=== PATIENT | male | born 1990 | race Two or more races ===

== ENCOUNTER 2017-08-14 13:21 | Inpatient (IN) | payer SELFPAY ==
[~2017-08-14] VITALS: Ht 175.3 cm; Wt 86.2 kg
[2017-08-14] VITALS (8 sets, daily range): BP systolic 102–120; BP diastolic 62–71
--- NOTE | 2017-08-14 14:08 | PHYS DOC ---
Past Medical History Past Medical History: No Pertinent History Past Surgical History: Other Additional Past Surgical Histo: L clavicle Alcohol Use: None Drug Use: None Adult General Chief Complaint Chief Complaint: LACERATION/AVULSION HPI HPI Patient is a 27 year old Occitan speaking male presents to the emergency department stating that he was at work when a metal sheet fell on his right forearm. This information as been provided through his boss who is interpreting for patient. He states that this fellow provided a laceration to the forearm area. He states his last tetanus shot was approximately 6 months ago. Patient does have full range of motion of the fingers on the right hand. Patient is left -hand-dominant. Bleeding is currently controlled. Review of Systems Review of Systems Constitutional: Denies fever or chills [] Eyes: Denies change in visual acuity, redness, or eye pain [] HENT: Denies nasal congestion or sore throat [] Respiratory: Denies cough or shortness of breath [] Cardiovascular: No additional information not addressed in HPI [] GI: Denies abdominal pain, nausea, vomiting, bloody stools or diarrhea [] : Denies dysuria or hematuria [] Musculoskeletal: Denies back pain or joint pain [] Integument: Denies rash or skin lesions. C/o laceration right forearm Neurologic: Denies headache, focal weakness or sensory changes [] Endocrine: Denies polyuria or polydipsia [] Current Medications Current Medications Current Medications Medications (Trade) Dose Ordered Sig/[facility] Start Time Stop Time Status Last Admin Dose Admin Cefazolin Sodium (Ancef 1gm Ivpb For Omni) 1 gm 1X ONCE 08/14/17 15:30 08/14/17 15:31 DC 08/14/17 15:07 1 GM Dexamethasone Sodium Phosphate (Decadron) 20 mg STK-MED ONCE 08/14/17 15:25 08/14/17 15:26 DC Fentanyl Citrate (Fentanyl 2ml Vial) 50 mcg PRN Q5MIN PRN 08/14/17 16:00 08/14/17 23:00 Hydromorphone HCl (Dilaudid) 0.5 mg PRN Q10MIN PRN 08/14/17 16:00 08/14/17 23:00 Ibuprofen (Motrin) 800 mg 1X ONCE 08/14/17 14:30 08/14/17 14:31 DC 08/14/17 14:06 800 MG Lidocaine HCl (Lidocaine Pf 2% Vial) 5 ml STK-MED ONCE 08/14/17 15:25 08/14/17 15:26 DC Lidocaine HCl (Xylocaine-Mpf 1% Vial) 2 ml PRN 1X PRN 08/14/17 16:00 08/14/17 23:00 Lidocaine/Sodium Bicarbonate (Buffered Lidocaine 1%) 20 ml 1X ONCE 08/14/17 14:30 08/14/17 14:31 DC 08/14/17 14:07 20 ML Midazolam HCl (Versed) 2 mg STK-MED ONCE 08/14/17 15:41 08/14/17 15:42 DC Morphine Sulfate 1 mg PRN Q10MIN PRN 08/14/17 16:00 08/14/17 23:00 Ondansetron HCl (Zofran) 4 mg PRN Q6HRS PRN 08/14/17 16:00 08/14/17 23:00 Prochlorperazine Edisylate (Compazine) 5 mg PACU PRN PRN 08/14/17 16:00 08/14/17 23:00 Propofol 20 ml @ As Directed STK-MED ONCE 08/14/17 15:25 08/14/17 15:26 DC Ringer's Solution 1,000 ml @ 30 mls/hr Q24H 08/14/17 15:46 08/14/17 23:00 Sevoflurane (Ultane) 30 ml STK-MED ONCE 08/14/17 15:25 08/14/17 15:26 DC Allergies Allergies Allergies Coded Allergies Type Severity Reaction Last Updated Verified No Known Drug Allergies 08/14/17 No Physical Exam Physical Exam Constitutional: Well developed, well nourished, no acute distress, non-toxic appearance. [] HENT: Normocephalic, atraumatic, bilateral external ears normal, oropharynx moist, no oral exudates, nose normal. [] Eyes: PERRLA, EOMI, conjunctiva normal, no discharge. [] Neck: Normal range of motion, no tenderness, supple, no stridor. [] Cardiovascular:Heart rate regular rhythm, no murmur [] Lungs & Thorax: Bilateral breath sounds clear to auscultation [] Skin: Warm, dry, no erythema, no rash. Laceration right forearm, bleeding controlled. Patient with full ROM of the right hand Back: No tenderness Extremities: No tenderness, no cyanosis, no clubbing, ROM intact, no edema. [] Neurologic: Alert and oriented X 3, normal motor function, normal sensory function, no focal deficits noted. [] Psychologic: Affect normal, judgement normal, mood normal. [] Current Patient Data Vital Signs Vital Signs Date Time Temp Pulse Resp B/P (MAP) Pulse Ox O2 Delivery O2 Flow Rate FiO2 08/14/17 13:33 98.5 77 20 96 Room Air 98.5 Lab Values Laboratory Tests Test 08/14/17 14:50 White Blood Count 11.5 x10^3/uL (4.0-11.0) H Red Blood Count 4.94 x10^6/uL (4.30-5.70) Hemoglobin 16.0 g/dL (13.0-17.5) Hematocrit 45.5 % (39.0-53.0) Mean Corpuscular Volume 92 fL (79-100) Mean Corpuscular Hemoglobin 32 pg (25-35) Mean Corpuscular Hemoglobin Concent 35 g/dL (31-37) Red Cell Distribution Width 13.1 % (11.5-14.5) Platelet Count 184 x10^3/uL (140-400) Neutrophils (%) (Auto) 82 % (31-73) H Lymphocytes (%) (Auto) 12 % (24-48) L Monocytes (%) (Auto) 7 % (0-9) Eosinophils (%) (Auto) 0 % (0-3) Basophils (%) (Auto) 0 % (0-3) Neutrophils # (Auto) 9.4 x10^3uL (1.8-7.7) H Lymphocytes # (Auto) 1.3 x10^3/uL (1.0-4.8) Monocytes # (Auto) 0.7 x10^3/uL (0.0-1.1) Eosinophils # (Auto) 0.0 x10^3/uL (0.0-0.7) Basophils # (Auto) 0.0 x10^3/uL (0.0-0.2) Sodium Level 142 mmol/L (136-145) Potassium Level 3.9 mmol/L (3.5-5.1) Chloride Level 104 mmol/L (98-107) Carbon Dioxide Level 27 mmol/L (21-32) Anion Gap 11 (6-14) Blood Urea Nitrogen 17 mg/dL (8-26) Creatinine 1.1 mg/dL (0.7-1.3) Estimated GFR (Cockcroft-Gault) 80.3 BUN/Creatinine Ratio 15 (6-20) Glucose Level 108 mg/dL (70-99) H Calcium Level 9.4 mg/dL (8.5-10.1) Total Bilirubin 0.5 mg/dL (0.2-1.0) Aspartate Amino Transferase (AST) 24 U/L (15-37) Alanine Aminotransferase (ALT) 30 U/L (16-63) Alkaline Phosphatase 100 U/L (46-116) Total Protein 7.9 g/dL (6.4-8.2) Albumin 4.4 g/dL (3.4-5.0) Albumin/Globulin Ratio 1.3 (1.0-1.7) Laboratory Tests 08/14/17 14:50 Laboratory Tests 08/14/17 14:50 EKG EKG [] Radiology/Procedures Radiology/Procedures [][facility] [address] [place] [address] IMAGING REPORT Signed PATIENT: BRIANNE MACEDO ACCOUNT: [id number] : 1990 LOCATION: ER AGE: 27 SEX: M EXAM STATUS: REG ER ORD. PHYSICIAN: OLI SCHAFFER APRN REASON: wrist pain, laceration, HEAVY OBJECT FELL & HIT ARM TODAY PROCEDURE: WRIST 3V RIGHT Right wrist, 2 views, 08/14/2017: History: Injury There is a transverse fracture of the distal radial shaft centered approximately 7 cm proximal to the level of the wrist joint. There is mild radial displacement of the distal fracture fragment at that fracture site. A slightly displaced ulnar styloid fracture is present. The carpal bones are intact. No dislocation is evident at the wrist. There is moderate overlying soft tissue swelling at the distal forearm level. IMPRESSION: 1. Mildly displaced distal radial shaft fracture. 2. Small ulnar styloid fracture. DICTATED and SIGNED BY: PER CALDERON MD DATE: 08/14/17 142 CC: OLI SCHAFFER APRN; NO PCP; NON,STAFF ~ Course & Med Decision Making Course & Med Decision Making Pertinent Labs and Imaging studies reviewed. (See chart for details) Patient with open laceration noted to the right forearm on the dorsal side that appears to have 2 lacerations one pink approximately 1.5 cm with a second being approximately 1 cm. Bleeding is currently controlled. Spoke with Dr. Cain orthopedic who is contacting the surgical department to see if there is any openings. Plan is for the patient to go to surgery between 1545 and 1600. Spoke with hospitalist in regards to admission of this patient. Dr Agee agrees with admission orders completed. [] Dragon Disclaimer Dragon Disclaimer This electronic medical record was generated, in whole or in part, using a voice recognition dictation system. Departure Departure Impression: Primary Impression: Open fracture of right forearm Disposition: ADMITTED INPATIENT Admitting Physician: Osman Agee Condition: STABLE Referrals: NO PCP (PCP) OLI SCHAFFER APRN Aug 14, 2017 14:08
[2017-08-14] MEDS ORDERED: LIDOCAINE 1% / SOD BICARB 8.4% 20 ML VIAL. IJ ONE (14:30)
[2017-08-14] MEDS ORDERED: IBUPROFEN 800 MG TABLET. PO ONE (14:30)
--- NOTE | 2017-08-14 14:36 | RAD ---
Right wrist, 2 views, 08/14/2017: History: Injury There is a transverse fracture of the distal radial shaft centered approximately 7 cm proximal to the level of the wrist joint. There is mild radial displacement of the distal fracture fragment at that fracture site. A slightly displaced ulnar styloid fracture is present. The carpal bones are intact. No dislocation is evident at the wrist. There is moderate overlying soft tissue swelling at the distal forearm level. IMPRESSION: 1. Mildly displaced distal radial shaft fracture. 2. Small ulnar styloid fracture.
[2017-08-14 15:12] LABS: BASO % 0 % (0-3); EOS % 0 % (0-3); HEMATOCRIT 45.5 % (39.0-53.0); LYMPH # 1.3 x10^3/uL (1.0-4.8); LYMPH % 12 % (24-48); MEAN CORPUSCULAR HEMOGLOBIN 32 pg (25-35); MEAN CORPUSCULAR HGB CONC 35 g/dL (31-37); MEAN CORPUSCULAR VOLUME 92 fL (79-100); MONO % 7 % (0-9); NEUT % 82 % (31-73); PLATELET COUNT 184 x10^3/uL (140-400); RED BLOOD COUNT 4.94 x10^6/uL (4.30-5.70); RED CELL DISTRIBUTION WIDTH 13.1 % (11.5-14.5); WHITE BLOOD COUNT 11.5 x10^3/uL (4.0-11.0)
[2017-08-14 15:20] LABS: CALCIUM 9.4 mg/dL (8.5-10.1); CREATININE 1.1 mg/dL (0.7-1.3); GFR 80.3; POTASSIUM 3.9 mmol/L (3.5-5.1)
[2017-08-14] MEDS ORDERED: LIDOCAINE 2% PF Vial for OR 5 ML VIAL. ONE ×2 (15:25→17:49)
[2017-08-14] MEDS ORDERED: ONDANSETRON PF 4 MG/2 ML VIAL. ONE (15:25)
[2017-08-14] MEDS ORDERED: PROPOFOL 20 ML IV ONE (15:25)
[2017-08-14] MEDS ORDERED: SEVOFLURANE 31 TO 60 MINUTES. IH ONE (15:25)
[2017-08-14] MEDS ORDERED: DEXAMETHASONE SOD PHOS 20 MG/5 ML VIAL. ONE (15:25)
[2017-08-14 15:26] LABS: ALBUMIN 4.4 g/dL (3.4-5.0); ALBUMIN/GLOBULIN RATIO 1.3 (1.0-1.7); TOTAL BILIRUBIN 0.5 mg/dL (0.2-1.0); TOTAL PROTEIN 7.9 g/dL (6.4-8.2)
[2017-08-14] MEDS ORDERED: ceFAZolin 1GM IVPB FOR OMNI 1 GM/50 ML BAG IV ONE (15:30)
[2017-08-14] MEDS ORDERED: fentaNYL PF VIAL 100 MCG/2 ML VIAL ONE ×2 (15:41→16:31)
[2017-08-14] MEDS ORDERED: MIDAZOLAM HCL/PF 2 MG/2 ML VIAL. ONE (15:41)
[2017-08-14] MEDS ORDERED: IV RINGERS,LACTATED 1000ML 1,000 ML IV SCH (15:46)
[2017-08-14] MEDS ORDERED: HYDROmorphone 2 MG/ML VIAL IV PRN (16:00)
[2017-08-14] MEDS ORDERED: LIDOCAINE 1% PF 2 ML VIAL. ID PRN (16:00)
[2017-08-14] MEDS ORDERED: ONDANSETRON PF 4 MG/2 ML VIAL. IV PRN ×2 (16:00→16:30)
[2017-08-14] MEDS ORDERED: PROCHLORPERAZINE 10 MG/2 ML VIAL. IV PRN (16:00)
[2017-08-14] MEDS ORDERED: fentaNYL PF VIAL 100 MCG/2 ML VIAL IV PRN ×2 (16:00)
[2017-08-14] MEDS ORDERED: MORPHINE SULFATE 2 MG/ML DISP.SYRIN. IV PRN ×2 (16:00→16:30)
[2017-08-14] MEDS ORDERED: BUPIVACAINE MPF 0.5% 30 ML VIAL. ONE (16:26)
[2017-08-14] MEDS ORDERED: oxyCODONE/APAP 5/325 1 TAB TABLET PO PRN (16:30)
[2017-08-14] MEDS ORDERED: ACETAMINOPHEN 325 MG TABLET. PO PRN (16:30)
[2017-08-14] MEDS ORDERED: DOCUSATE SODIUM 100 MG CAPSULE. PO PRN (16:30)
[2017-08-14] MEDS ORDERED: traMADol 50 MG TABLET PO PRN ×2 (16:30→18:30)
[2017-08-14] MEDS ORDERED: hydrALAZINE 20 MG/ML VIAL. IVP PRN (16:30)
--- NOTE | 2017-08-14 16:33 | PDOC1 ---
History and Physical Date of Admission Date of Admission 08/14/17 Identification/Chief Complaint Chief Complaint right arm fx Problems: Source Source: Chart review, Patient History of Present Illness History of Present Illness Patient is a 27 year old Ghanaian speaking male presents to the emergency department for right forearm pain. Pt is latvian speaking. 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 He was noticed to have a laceration to the forearm area and XR showed a distal radial fx, in OR now. He states his last tetanus shot was approximately 6 months ago. Patient does have full range of motion of the fingers on the right hand. Patient is left-hand -dominant. Bleeding is currently controlled. Past Medical History Past Medical History none Past Surgical History Past Surgical History: No pertinent history Family History Family History: Hypertension Social History Smoke: No ALCOHOL: rare Drugs: None Current Problem List Problem List Problems Medical Problems: (1) Open fracture of right forearm Status: Acute Current Medications Current Medications Current Medications Medications (Trade) Dose Ordered Sig/[facility] Start Time Stop Time Status Last Admin Dose Admin Cefazolin Sodium (Ancef 1gm Ivpb For Omni) 1 gm 1X ONCE 08/14/17 15:30 08/14/17 15:31 DC 08/14/17 15:07 1 GM Dexamethasone Sodium Phosphate (Decadron) 20 mg STK-MED ONCE 08/14/17 15:25 08/14/17 15:26 DC Fentanyl Citrate (Fentanyl 2ml Vial) 50 mcg PRN Q5MIN PRN 08/14/17 16:00 08/14/17 23:00 Hydromorphone HCl (Dilaudid) 0.5 mg PRN Q10MIN PRN 08/14/17 16:00 08/14/17 23:00 Ibuprofen (Motrin) 800 mg 1X ONCE 08/14/17 14:30 08/14/17 14:31 DC 08/14/17 14:06 800 MG Lidocaine HCl (Lidocaine Pf 2% Vial) 5 ml STK-MED ONCE 08/14/17 15:25 08/14/17 15:26 DC Lidocaine HCl (Xylocaine-Mpf 1% Vial) 2 ml PRN 1X PRN 08/14/17 16:00 08/14/17 23:00 Lidocaine/Sodium Bicarbonate (Buffered Lidocaine 1%) 20 ml 1X ONCE 08/14/17 14:30 08/14/17 14:31 DC 08/14/17 14:07 20 ML Midazolam HCl (Versed) 2 mg STK-MED ONCE 08/14/17 15:41 08/14/17 15:42 DC Morphine Sulfate 1 mg PRN Q10MIN PRN 08/14/17 16:00 08/14/17 23:00 Ondansetron HCl (Zofran) 4 mg PRN Q6HRS PRN 08/14/17 16:00 08/14/17 23:00 Prochlorperazine Edisylate (Compazine) 5 mg PACU PRN PRN 08/14/17 16:00 08/14/17 23:00 Propofol 20 ml @ As Directed STK-MED ONCE 08/14/17 15:25 08/14/17 15:26 DC Ringer's Solution 1,000 ml @ 30 mls/hr Q24H 08/14/17 15:46 08/14/17 23:00 Sevoflurane (Ultane) 30 ml STK-MED ONCE 08/14/17 15:25 08/14/17 15:26 DC Allergies Allergies Allergies Coded Allergies Type Severity Reaction Last Updated Verified No Known Drug Allergies 08/14/17 No ROS Review of System CONSTITUTIONAL: No fever or chills EYES: No recent changes SKIN: No rash or itching CARDIOVASCULAR: No chest pain, syncope, palpitations, or edema RESPIRATORY: No SOB or cough GASTROINTESTINAL: No nausea, vomiting or abdominal pain NEUROLOGICAL: No headaches or weakness ENDOCRINE: No cold or heat intolerance GENITOURINARY: No urgency or frequency of urination MUSCULOSKELETAL: No back pain or joint pain LYMPHATICS: No enlarged lymph nodes PSYCHIATRIC: No anxiety or depression Physical Exam Physical Exam GEN.: No apparent distress. Alert and oriented. HEENT: Head is normocephalic, atraumatic NECK: Supple. LUNGS: Clear to auscultation. HEART: RRR, S1, S2 present. Peripheral pulses intact ABDOMEN: Soft, nontender. Positive bowel sounds. EXTREMITIES: Without any cyanosis. right forearm pain with dressing NEUROLOGIC: Normal speech, normal tone PSYCHIATRIC: Normal affect, normal mood. SKIN: No ulcerations Vitals Vitals Vital Signs Date Time Temp Pulse Resp B/P (MAP) Pulse Ox O2 Delivery O2 Flow Rate FiO2 08/14/17 13:33 98.5 77 20 96 Room Air 98.5 Labs Labs Laboratory Tests Test 08/14/17 14:50 White Blood Count 11.5 x10^3/uL (4.0-11.0) Red Blood Count 4.94 x10^6/uL (4.30-5.70) Hemoglobin 16.0 g/dL (13.0-17.5) Hematocrit 45.5 % (39.0-53.0) Mean Corpuscular Volume 92 fL (79-100) Mean Corpuscular Hemoglobin 32 pg (25-35) Mean Corpuscular Hemoglobin Concent 35 g/dL (31-37) Red Cell Distribution Width 13.1 % (11.5-14.5) Platelet Count 184 x10^3/uL (140-400) Neutrophils (%) (Auto) 82 % (31-73) Lymphocytes (%) (Auto) 12 % (24-48) Monocytes (%) (Auto) 7 % (0-9) Eosinophils (%) (Auto) 0 % (0-3) Basophils (%) (Auto) 0 % (0-3) Neutrophils # (Auto) 9.4 x10^3uL (1.8-7.7) Lymphocytes # (Auto) 1.3 x10^3/uL (1.0-4.8) Monocytes # (Auto) 0.7 x10^3/uL (0.0-1.1) Eosinophils # (Auto) 0.0 x10^3/uL (0.0-0.7) Basophils # (Auto) 0.0 x10^3/uL (0.0-0.2) Sodium Level 142 mmol/L (136-145) Potassium Level 3.9 mmol/L (3.5-5.1) Chloride Level 104 mmol/L (98-107) Carbon Dioxide Level 27 mmol/L (21-32) Anion Gap 11 (6-14) Blood Urea Nitrogen 17 mg/dL (8-26) Creatinine 1.1 mg/dL (0.7-1.3) Estimated GFR (Cockcroft-Gault) 80.3 BUN/Creatinine Ratio 15 (6-20) Glucose Level 108 mg/dL (70-99) Calcium Level 9.4 mg/dL (8.5-10.1) Total Bilirubin 0.5 mg/dL (0.2-1.0) Aspartate Amino Transf (AST/SGOT) 24 U/L (15-37) Alanine Aminotransferase (ALT/SGPT) 30 U/L (16-63) Alkaline Phosphatase 100 U/L (46-116) Total Protein 7.9 g/dL (6.4-8.2) Albumin 4.4 g/dL (3.4-5.0) Albumin/Globulin Ratio 1.3 (1.0-1.7) Laboratory Tests Test 08/14/17 14:50 White Blood Count 11.5 x10^3/uL (4.0-11.0) Red Blood Count 4.94 x10^6/uL (4.30-5.70) Hemoglobin 16.0 g/dL (13.0-17.5) Hematocrit 45.5 % (39.0-53.0) Mean Corpuscular Volume 92 fL (79-100) Mean Corpuscular Hemoglobin 32 pg (25-35) Mean Corpuscular Hemoglobin Concent 35 g/dL (31-37) Red Cell Distribution Width 13.1 % (11.5-14.5) Platelet Count 184 x10^3/uL (140-400) Neutrophils (%) (Auto) 82 % (31-73) Lymphocytes (%) (Auto) 12 % (24-48) Monocytes (%) (Auto) 7 % (0-9) Eosinophils (%) (Auto) 0 % (0-3) Basophils (%) (Auto) 0 % (0-3) Neutrophils # (Auto) 9.4 x10^3uL (1.8-7.7) Lymphocytes # (Auto) 1.3 x10^3/uL (1.0-4.8) Monocytes # (Auto) 0.7 x10^3/uL (0.0-1.1) Eosinophils # (Auto) 0.0 x10^3/uL (0.0-0.7) Basophils # (Auto) 0.0 x10^3/uL (0.0-0.2) Sodium Level 142 mmol/L (136-145) Potassium Level 3.9 mmol/L (3.5-5.1) Chloride Level 104 mmol/L (98-107) Carbon Dioxide Level 27 mmol/L (21-32) Anion Gap 11 (6-14) Blood Urea Nitrogen 17 mg/dL (8-26) Creatinine 1.1 mg/dL (0.7-1.3) Estimated GFR (Cockcroft-Gault) 80.3 BUN/Creatinine Ratio 15 (6-20) Glucose Level 108 mg/dL (70-99) Calcium Level 9.4 mg/dL (8.5-10.1) Total Bilirubin 0.5 mg/dL (0.2-1.0) Aspartate Amino Transf (AST/SGOT) 24 U/L (15-37) Alanine Aminotransferase (ALT/SGPT) 30 U/L (16-63) Alkaline Phosphatase 100 U/L (46-116) Total Protein 7.9 g/dL (6.4-8.2) Albumin 4.4 g/dL (3.4-5.0) Albumin/Globulin Ratio 1.3 (1.0-1.7) VTE Prophylaxis Ordered VTE Prophylaxis Devices: Yes VTE Pharmacological Prophylaxi: No Assessment/Plan Assessment/Plan open traumatic Mildly displaced distal radial shaft fracture traumatic Small ulnar styloid fracture leukocytosis, reactive plan: OR today for the fx pain control dvt ppx tmr COLIN [place] MD Aug 14, 2017 16:33
--- NOTE | 2017-08-14 18:25 | PDOC2 ---
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 He had slightly decreased sensation to light touch in the superficial branch of the radial nerve, but was otherwise NVI. Xrays revealed a midshaft transverse radial fracture. He was in severe pain. His tetanus was within the last 5 years, and he received antibiotics in the ER. He is a non smoker. Past Medical History Past Medical History no past medical history. Cardiovascular: No pertinent hx Past Surgical History Past Surgical History: No pertinent history Family History Family History: Hypertension Social History No ALCOHOL: rare Drugs: None Current Problem List Problem List Problems Medical Problems: (1) Open fracture of right forearm Status: Acute Current Medications Current Medications Current Medications Lidocaine/Sodium Bicarbonate (Buffered Lidocaine 1%) 20 ml 1X ONCE IJ Last administered on 08/14/17 14:07; Start 08/14/17 at 14:30; Stop 08/14/17 at 14 :31; Status DC Ibuprofen (Motrin) 800 mg 1X ONCE PO Last administered on 08/14/17 14:06; Start 08/14/17 at 14:30; Stop 08/14/17 at 14:31; Status DC Cefazolin Sodium (Ancef 1gm Ivpb For Omni) 1 gm 1X ONCE IV Last administered on 08/14/17 15:07; Start 08/14/17 at 15:30; Stop 08/14/17 at 15:31; Status DC Propofol 20 ml @ As Directed STK-MED ONCE IV ; Start 08/14/17 at 15:25; Stop 08/14/17 at 15:26; Status DC Dexamethasone Sodium Phosphate (Decadron) 20 mg STK-MED ONCE .ROUTE ; Start at 15:25; Stop 08/14/17 at 15:26; Status DC Lidocaine HCl (Lidocaine Pf 2% Vial) 5 ml STK-MED ONCE .ROUTE ; Start 08/14/17 at 15:25; Stop 08/14/17 at 15:26; Status DC Ondansetron HCl (Zofran) 4 mg STK-MED ONCE .ROUTE ; Start 08/14/17 at 15:25; Stop 08/14/17 at 15:26; Status DC Sevoflurane (Ultane) 30 ml STK-MED ONCE IH ; Start 08/14/17 at 15:25; Stop at 15:26; Status DC Fentanyl Citrate (Fentanyl 2ml Vial) 100 mcg STK-MED ONCE .ROUTE ; Start at 15:41; Stop 08/14/17 at 15:42; Status DC Midazolam HCl (Versed) 2 mg STK-MED ONCE .ROUTE ; Start 08/14/17 at 15:41; Stop 08/14/17 at 15:42; Status DC Ondansetron HCl (Zofran) 4 mg PRN Q6HRS PRN IV NAUSEA/VOMITING; Start at 16:00; Stop 08/14/17 at 23:00 Fentanyl Citrate (Fentanyl 2ml Vial) 25 mcg PRN Q5MIN PRN IV MILD PAIN; Start 08/14/17 at 16:00; Stop 08/14/17 at 23:00 Fentanyl Citrate (Fentanyl 2ml Vial) 50 mcg PRN Q5MIN PRN IV MODERATE PAIN; Start 08/14/17 at 16:00; Stop 08/14/17 at 23:00 Morphine Sulfate 1 mg PRN Q10MIN PRN IV SEVERE PAIN; Start 08/14/17 at 16:00; Stop 08/14/17 at 23:00 Ringer's Solution 1,000 ml @ 30 mls/hr Q24H IV ; Start 08/14/17 at 15:46; Stop 08/14/17 at 23:00 Lidocaine HCl (Xylocaine-Mpf 1% Vial) 2 ml PRN 1X PRN ID PRIOR TO IV START; Start 08/14/17 at 16:00; Stop 08/14/17 at 23:00 Hydromorphone HCl (Dilaudid) 0.5 mg PRN Q10MIN PRN IV SEV PAIN, Second choice; Start 08/14/17 at 16:00; Stop 08/14/17 at 23:00 Prochlorperazine Edisylate (Compazine) 5 mg PACU PRN PRN IV NAUSEA, MRX1; Start 08/14/17 at 16:00; Stop 08/14/17 at 23:00 Acetaminophen (Tylenol) 650 mg PRN Q6HRS PRN PO FEVER; Start 08/14/17 at 16:30 Ondansetron HCl (Zofran) 4 mg PRN Q6HRS PRN IV NAUSEA/VOMITING; Start at 16:30 Morphine Sulfate 2 mg PRN Q2HR PRN IV PAIN; Start 08/14/17 at 16:30 Tramadol HCl (Ultram) 50 mg PRN Q6HRS PRN PO PAIN; Start 08/14/17 at 16:30 Hydralazine HCl (Apresoline Inj) 10 mg PRN Q4HRS PRN IVP ELEVATED BP, SEE COMMENTS; Start 08/14/17 at 16:30 Docusate Sodium (Colace) 100 mg PRN DAILY PRN PO CONSTIPATION; Start 08/14/17 at 16:30 Oxycodone/ Acetaminophen (Percocet 5/325) 1 tab PRN Q4HRS PRN PO PAIN; Start 08/14/17 at 16:30 Fentanyl Citrate (Fentanyl 2ml Vial) 100 mcg STK-MED ONCE .ROUTE ; Start at 16:31; Stop 08/14/17 at 16:32; Status DC Bupivacaine HCl (Sensorcaine Mpf 0.5%) 30 ml STK-MED ONCE .ROUTE ; Start at 16:26; Stop 08/14/17 at 17:26; Status DC Lidocaine HCl (Lidocaine Pf 2% Vial) 5 ml STK-MED ONCE .ROUTE ; Start 08/14/17 at 17:49; Stop 08/14/17 at 17:50; Status DC Allergies Allergies: Coded Allergies: No Known Drug Allergies (Unverified , 08/14/17) ROS General: No: Chills, Night Sweats, Fatigue, Malaise, Appetite, Other PSYCHOLOGICAL ROS: No: Anxiety, Behavioral Disorder, Concentration difficultie , Decreased libido, Depression, Disorientation, Hallucinations, Hostility, Irritablity, Memory difficulties, Mood Swings, Obsessive thoughts, Physical abuse, Sexual abuse, Sleep disturbances, Suicidal ideation, Other Musculoskeletal: Yes Muscle Pain, Yes Pain In:, Yes Swelling In: (right forearm ) Physical Exam General: Alert, Oriented X3, Cooperative, mild distress HEENT: Atraumatic Lungs: Normal air movement Skin: Other (4 cm dorsal laceration on the forearm with subcutaneous tissue and muscle protruding. ) MUSCULOSKELETAL: Other (right upper extremity with dorsal laceration as described above. +EPL/FPL/WE/FF/IO. 2+ radial pulse. silt in the r/u/m/nerves except slight decreased slt over the superficial radial nerve. ) Vitals VITALS Vital Signs Date Time Temp Pulse Resp B/P (MAP) Pulse Ox O2 Delivery O2 Flow Rate FiO2 08/14/17 15:45 100.2 90 20 137/56 97 Room Air 100.2 Labs Labs Laboratory Tests Test 08/14/17 14:50 White Blood Count 11.5 x10^3/uL (4.0-11.0) Red Blood Count 4.94 x10^6/uL (4.30-5.70) Hemoglobin 16.0 g/dL (13.0-17.5) Hematocrit 45.5 % (39.0-53.0) Mean Corpuscular Volume 92 fL (79-100) Mean Corpuscular Hemoglobin 32 pg (25-35) Mean Corpuscular Hemoglobin Concent 35 g/dL (31-37) Red Cell Distribution Width 13.1 % (11.5-14.5) Platelet Count 184 x10^3/uL (140-400) Neutrophils (%) (Auto) 82 % (31-73) Lymphocytes (%) (Auto) 12 % (24-48) Monocytes (%) (Auto) 7 % (0-9) Eosinophils (%) (Auto) 0 % (0-3) Basophils (%) (Auto) 0 % (0-3) Neutrophils # (Auto) 9.4 x10^3uL (1.8-7.7) Lymphocytes # (Auto) 1.3 x10^3/uL (1.0-4.8) Monocytes # (Auto) 0.7 x10^3/uL (0.0-1.1) Eosinophils # (Auto) 0.0 x10^3/uL (0.0-0.7) Basophils # (Auto) 0.0 x10^3/uL (0.0-0.2) Sodium Level 142 mmol/L (136-145) Potassium Level 3.9 mmol/L (3.5-5.1) Chloride Level 104 mmol/L (98-107) Carbon Dioxide Level 27 mmol/L (21-32) Anion Gap 11 (6-14) Blood Urea Nitrogen 17 mg/dL (8-26) Creatinine 1.1 mg/dL (0.7-1.3) Estimated GFR (Cockcroft-Gault) 80.3 BUN/Creatinine Ratio 15 (6-20) Glucose Level 108 mg/dL (70-99) Calcium Level 9.4 mg/dL (8.5-10.1) Total Bilirubin 0.5 mg/dL (0.2-1.0) Aspartate Amino Transf (AST/SGOT) 24 U/L (15-37) Alanine Aminotransferase (ALT/SGPT) 30 U/L (16-63) Alkaline Phosphatase 100 U/L (46-116) Total Protein 7.9 g/dL (6.4-8.2) Albumin 4.4 g/dL (3.4-5.0) Albumin/Globulin Ratio 1.3 (1.0-1.7) Laboratory Tests Test 08/14/17 14:50 White Blood Count 11.5 x10^3/uL (4.0-11.0) Red Blood Count 4.94 x10^6/uL (4.30-5.70) Hemoglobin 16.0 g/dL (13.0-17.5) Hematocrit 45.5 % (39.0-53.0) Mean Corpuscular Volume 92 fL (79-100) Mean Corpuscular Hemoglobin 32 pg (25-35) Mean Corpuscular Hemoglobin Concent 35 g/dL (31-37) Red Cell Distribution Width 13.1 % (11.5-14.5) Platelet Count 184 x10^3/uL (140-400) Neutrophils (%) (Auto) 82 % (31-73) Lymphocytes (%) (Auto) 12 % (24-48) Monocytes (%) (Auto) 7 % (0-9) Eosinophils (%) (Auto) 0 % (0-3) Basophils (%) (Auto) 0 % (0-3) Neutrophils # (Auto) 9.4 x10^3uL (1.8-7.7) Lymphocytes # (Auto) 1.3 x10^3/uL (1.0-4.8) Monocytes # (Auto) 0.7 x10^3/uL (0.0-1.1) Eosinophils # (Auto) 0.0 x10^3/uL (0.0-0.7) Basophils # (Auto) 0.0 x10^3/uL (0.0-0.2) Sodium Level 142 mmol/L (136-145) Potassium Level 3.9 mmol/L (3.5-5.1) Chloride Level 104 mmol/L (98-107) Carbon Dioxide Level 27 mmol/L (21-32) Anion Gap 11 (6-14) Blood Urea Nitrogen 17 mg/dL (8-26) Creatinine 1.1 mg/dL (0.7-1.3) Estimated GFR (Cockcroft-Gault) 80.3 BUN/Creatinine Ratio 15 (6-20) Glucose Level 108 mg/dL (70-99) Calcium Level 9.4 mg/dL (8.5-10.1) Total Bilirubin 0.5 mg/dL (0.2-1.0) Aspartate Amino Transf (AST/SGOT) 24 U/L (15-37) Alanine Aminotransferase (ALT/SGPT) 30 U/L (16-63) Alkaline Phosphatase 100 U/L (46-116) Total Protein 7.9 g/dL (6.4-8.2) Albumin 4.4 g/dL (3.4-5.0) Albumin/Globulin Ratio 1.3 (1.0-1.7) Images Images Xrays of the right forearm reveals a transverse midshaft radial fracture Assessment/Plan Assessment/Plan The patient is a 27 year old lhd male who presented to the ER with a dorsal laceration over a transverse radius fracture, concern for open fracture. We discussed the risks and benefits of operative treatment and he would like to proceed with surgery. He received ancef in the Er. Plan for excisional debridement, open reduction internal fixation of his fracture. pain control, bowel regimen will receive 24 hours antibiotics for open fracture fortino vazquez. can follow up in one week in my office or back home in [place] to have his sutures removed. he will need new xrays of the forearm at that time. All of the history and consent were obtained through a phone site interpreter because the patient speaks predominantly syriac. CIRILO CISNEROS MD Aug 14, 2017 18:25
--- NOTE | 2017-08-14 18:27 | PDOC ---
BRIEF OPERATIVE NOTE Date: Aug 14, 2017 Pre-Op Diagnosis right open forearm fracture Post-Op Diagnosis same Procedure Performed excisional debridement, orif r radius fracture Surgeon Cirilo Cisneros MD Seismograph Operator none Anesthesia Type: General Blood Loss 10 cc Findings 4 cm dorsal laceration over the fracture site. no gross contamination. Complications none OPerative Note tourniquet time 69 minutes. 7 hole variax compression plate applied in compression 6L sterile saline. CIRILO CISNEROS MD Aug 14, 2017 18:27
[2017-08-14] MEDS ORDERED: oxyCODONE IR 5 MG TABLET PO PRN (18:30)
[2017-08-14] MEDS ORDERED: HYDROmorphone 2 MG/ML VIAL IVP PRN (18:30)
[2017-08-14] MEDS ORDERED: SENNOSIDES/DOCUSATE 8.6/50MG TABLET. PO PRN (18:30)
[2017-08-15 03:00] VITALS: BP 110/62
[2017-08-15 04:47] LABS: BASO % 0 % (0-3); EOS % 0 % (0-3); HEMATOCRIT 45.4 % (39.0-53.0); HEMOGLOBIN 15.5 g/dL (13.0-17.5); LYMPH # 1.2 x10^3/uL (1.0-4.8); LYMPH % 8 % (24-48); MEAN CORPUSCULAR HEMOGLOBIN 32 pg (25-35); MEAN CORPUSCULAR HGB CONC 34 g/dL (31-37); MEAN CORPUSCULAR VOLUME 94 fL (79-100); MONO % 5 % (0-9); NEUT % 86 % (31-73); PLATELET COUNT 190 x10^3/uL (140-400); RED BLOOD COUNT 4.84 x10^6/uL (4.30-5.70); WHITE BLOOD COUNT 14.5 x10^3/uL (4.0-11.0)
[2017-08-15 05:23] LABS: CALCIUM 8.7 mg/dL (8.5-10.1); CREATININE 0.9 mg/dL (0.7-1.3); GFR 101.2; POTASSIUM 3.9 mmol/L (3.5-5.1)
[2017-08-15 06:39] VITALS: BP 103/57
[2017-08-15 06:53] LABS: PLT ESTIMATE ADEQUATE (ADEQUATE)
--- NOTE | 2017-08-15 12:22 | PDOC ---
PROGRESS NOTES Subjective Subjective Problems overnight: Objective Vital Signs Vital Signs Date Time Temp Pulse Resp B/P (MAP) Pulse Ox O2 Delivery O2 Flow Rate FiO2 08/15/17 09:00 Room Air 08/15/17 06:39 98.0 80 20 103/57 (72) 98 98.0 08/14/17 19:00 2 Labs Laboratory Tests Test 08/14/17 14:50 08/15/17 03:25 White Blood Count 11.5 x10^3/uL (4.0-11.0) 14.5 x10^3/uL (4.0-11.0) Red Blood Count 4.94 x10^6/uL (4.30-5.70) 4.84 x10^6/uL (4.30-5.70) Hemoglobin 16.0 g/dL (13.0-17.5) 15.5 g/dL (13.0-17.5) Hematocrit 45.5 % (39.0-53.0) 45.4 % (39.0-53.0) Mean Corpuscular Volume 92 fL (79-100) 94 fL (79-100) Mean Corpuscular Hemoglobin 32 pg (25-35) 32 pg (25-35) Mean Corpuscular Hemoglobin Concent 35 g/dL (31-37) 34 g/dL (31-37) Red Cell Distribution Width 13.1 % (11.5-14.5) 13.0 % (11.5-14.5) Platelet Count 184 x10^3/uL (140-400) 190 x10^3/uL (140-400) Neutrophils (%) (Auto) 82 % (31-73) 86 % (31-73) Lymphocytes (%) (Auto) 12 % (24-48) 8 % (24-48) Monocytes (%) (Auto) 7 % (0-9) 5 % (0-9) Eosinophils (%) (Auto) 0 % (0-3) 0 % (0-3) Basophils (%) (Auto) 0 % (0-3) 0 % (0-3) Neutrophils # (Auto) 9.4 x10^3uL (1.8-7.7) 12.6 x10^3uL (1.8-7.7) Lymphocytes # (Auto) 1.3 x10^3/uL (1.0-4.8) 1.2 x10^3/uL (1.0-4.8) Monocytes # (Auto) 0.7 x10^3/uL (0.0-1.1) 0.8 x10^3/uL (0.0-1.1) Eosinophils # (Auto) 0.0 x10^3/uL (0.0-0.7) 0.0 x10^3/uL (0.0-0.7) Basophils # (Auto) 0.0 x10^3/uL (0.0-0.2) 0.0 x10^3/uL (0.0-0.2) Sodium Level 142 mmol/L (136-145) 140 mmol/L (136-145) Potassium Level 3.9 mmol/L (3.5-5.1) 3.9 mmol/L (3.5-5.1) Chloride Level 104 mmol/L (98-107) 104 mmol/L (98-107) Carbon Dioxide Level 27 mmol/L (21-32) 27 mmol/L (21-32) Anion Gap 11 (6-14) 9 (6-14) Blood Urea Nitrogen 17 mg/dL (8-26) 14 mg/dL (8-26) Creatinine 1.1 mg/dL (0.7-1.3) 0.9 mg/dL (0.7-1.3) Estimated GFR (Cockcroft-Gault) 80.3 101.2 BUN/Creatinine Ratio 15 (6-20) Glucose Level 108 mg/dL (70-99) 143 mg/dL (70-99) Calcium Level 9.4 mg/dL (8.5-10.1) 8.7 mg/dL (8.5-10.1) Total Bilirubin 0.5 mg/dL (0.2-1.0) Aspartate Amino Transf (AST/SGOT) 24 U/L (15-37) Alanine Aminotransferase (ALT/SGPT) 30 U/L (16-63) Alkaline Phosphatase 100 U/L (46-116) Total Protein 7.9 g/dL (6.4-8.2) Albumin 4.4 g/dL (3.4-5.0) Albumin/Globulin Ratio 1.3 (1.0-1.7) Segmented Neutrophils % 84 % (35-66) Band Neutrophils % 3 % (0-9) Lymphocytes % 11 % (24-48) Monocytes % 2 % (0-10) Platelet Estimate Adequate (ADEQUATE) Laboratory Tests Test 08/14/17 14:50 08/15/17 03:25 White Blood Count 11.5 x10^3/uL (4.0-11.0) 14.5 x10^3/uL (4.0-11.0) Red Blood Count 4.94 x10^6/uL (4.30-5.70) 4.84 x10^6/uL (4.30-5.70) Hemoglobin 16.0 g/dL (13.0-17.5) 15.5 g/dL (13.0-17.5) Hematocrit 45.5 % (39.0-53.0) 45.4 % (39.0-53.0) Mean Corpuscular Volume 92 fL (79-100) 94 fL (79-100) Mean Corpuscular Hemoglobin 32 pg (25-35) 32 pg (25-35) Mean Corpuscular Hemoglobin Concent 35 g/dL (31-37) 34 g/dL (31-37) Red Cell Distribution Width 13.1 % (11.5-14.5) 13.0 % (11.5-14.5) Platelet Count 184 x10^3/uL (140-400) 190 x10^3/uL (140-400) Neutrophils (%) (Auto) 82 % (31-73) 86 % (31-73) Lymphocytes (%) (Auto) 12 % (24-48) 8 % (24-48) Monocytes (%) (Auto) 7 % (0-9) 5 % (0-9) Eosinophils (%) (Auto) 0 % (0-3) 0 % (0-3) Basophils (%) (Auto) 0 % (0-3) 0 % (0-3) Neutrophils # (Auto) 9.4 x10^3uL (1.8-7.7) 12.6 x10^3uL (1.8-7.7) Lymphocytes # (Auto) 1.3 x10^3/uL (1.0-4.8) 1.2 x10^3/uL (1.0-4.8) Monocytes # (Auto) 0.7 x10^3/uL (0.0-1.1) 0.8 x10^3/uL (0.0-1.1) Eosinophils # (Auto) 0.0 x10^3/uL (0.0-0.7) 0.0 x10^3/uL (0.0-0.7) Basophils # (Auto) 0.0 x10^3/uL (0.0-0.2) 0.0 x10^3/uL (0.0-0.2) Sodium Level 142 mmol/L (136-145) 140 mmol/L (136-145) Potassium Level 3.9 mmol/L (3.5-5.1) 3.9 mmol/L (3.5-5.1) Chloride Level 104 mmol/L (98-107) 104 mmol/L (98-107) Carbon Dioxide Level 27 mmol/L (21-32) 27 mmol/L (21-32) Anion Gap 11 (6-14) 9 (6-14) Blood Urea Nitrogen 17 mg/dL (8-26) 14 mg/dL (8-26) Creatinine 1.1 mg/dL (0.7-1.3) 0.9 mg/dL (0.7-1.3) Estimated GFR (Cockcroft-Gault) 80.3 101.2 BUN/Creatinine Ratio 15 (6-20) Glucose Level 108 mg/dL (70-99) 143 mg/dL (70-99) Calcium Level 9.4 mg/dL (8.5-10.1) 8.7 mg/dL (8.5-10.1) Total Bilirubin 0.5 mg/dL (0.2-1.0) Aspartate Amino Transf (AST/SGOT) 24 U/L (15-37) Alanine Aminotransferase (ALT/SGPT) 30 U/L (16-63) Alkaline Phosphatase 100 U/L (46-116) Total Protein 7.9 g/dL (6.4-8.2) Albumin 4.4 g/dL (3.4-5.0) Albumin/Globulin Ratio 1.3 (1.0-1.7) Segmented Neutrophils % 84 % (35-66) Band Neutrophils % 3 % (0-9) Lymphocytes % 11 % (24-48) Monocytes % 2 % (0-10) Platelet Estimate Adequate (ADEQUATE) Assessment Assessment POD# 1, S/P 1 &D RIGHT UPPER EXTREMITY and open reduction internal fixation right distal radius fracture Problems: Plan Plan of Care His pain is currently well controlled. Will likely be returning back to [place] for followup. he should be seen by a doctor within 7-10 days to have the sutures removed on his dorsal arm. I have given him a handout regarding his prineo dressing, although it is in uzbek. Essentially the sticker should stay in place for two weeks and then get peeled off. It is waterproof If he were staying in town I would remove his splint 1 week postop, remove his sutures, and allow him to shower with the prineo dressing in place. The prineo gets removed 2 weeks after surgery. 1 lb wt limit on his right arm until the bone heals, usually 8 weeks. hand, wrist, elbow range of motion is ok however and should be encouraged to prevent stiffness. His vitamin D level is still pending, that will need to be followed and supplemented as needed He needs a full 24 hours of antibiotics prior to dc, so discharge possible later this afternoon. CIRILO CISNEROS MD Aug 15, 2017 12:21
--- NOTE | 2017-08-15 13:40 | PDOC3 ---
Discharge Summary [facility] Date of Admission: Aug 14, 2017 Discharge Date: Aug 15, 2017 Admitting Diagnosis open traumatic Mildly displaced distal radial shaft fracture s/p laceration debridement and ORIF for fx traumatic Small ulnar styloid fracture right forearm laceration leukocytosis, reactive Problems: Final Diagnosis CONSULTS dr. Cain Procedures laceration debridement and ORIF for fx Brief Hospital Course Patient is a 27 year old Gren[place] speaking male presents to the emergency department for right forearm pain. Pt is thai speaking. 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 He was noticed to have a laceration to the forearm area and XR showed a distal radial fx, in OR now. He states his last tetanus shot was approximately 6 months ago. Patient does have full range of motion of the fingers on the right hand. Patient is left-hand -dominant. Bleeding is currently controlled. pt underwent laceration debridement and ORIF for fx by ortho on 08/14, now with splints. livers in [place], will go to [facility]. keep splint x7-10ds, then need to see a doc to remove the sutures. also prineo dressing stay for 2 weeks. 1lb wt limit x2 months. hand,s srist, elbow rang of motion is ok to prevent stiffness. ASA 325mg daily x1 week. dc time 35min. GEN.: No apparent distress. Alert and oriented. HEENT: Head is normocephalic, atraumatic NECK: Supple. LUNGS: Clear to auscultation. HEART: RRR, S1, S2 present. Peripheral pulses intact ABDOMEN: Soft, nontender. Positive bowel sounds. EXTREMITIES: Without any cyanosis. right forearm pain with splints NEUROLOGIC: Normal speech, normal tone PSYCHIATRIC: Normal affect, normal mood. SKIN: No ulcerations Patient History: Essential hypertension 33 FATHER Unknown 33 FATHER Problems: Disposition home CONDITION AT DISCHARGE: Improved Diet regular Follow Up doc next week COLIN [place] MD Aug 15, 2017 13:40
[2017-08-15] MEDS ORDERED: ASPI325T8 PO (13:48)
[2017-08-15] MEDS ORDERED: OXYC1TAB7 PO (13:48)
[2017-08-15] MEDS ORDERED: ASPIRIN 325 MG TABLET PO SCH (14:00)
[2017-08-15 14:19] VITALS: BP 91/59
--- NOTE | 2017-08-15 21:07 | PDOC4 ---
Operative Note Operative Note Date: Aug 14, 2017 Pre-Op Diagnosis right open forearm fracture Post-Op Diagnosis same Procedure Performed excisional debridement, orif r radius fracture Surgeon Cirilo Cisneros MD Back Roll Lathe Operator none Anesthesia Type: General Blood Loss 10 cc Findings 4 cm dorsal laceration over the fracture site. no gross contamination. Complications none OPerative Note tourniquet time 69 minutes. 7 hole variax compression plate applied in compression 6L sterile saline. Date of Operation: 12/16/16 Preoperative Diagnosis: Open right forearm fracture Postoperative Diagnosis: same Operation Performed: Debridement including removal of foreign material associated with open fractures and or dislocations; skin and subcutaneous tissues, , muscle fascia, muscle, and bone 85230 open reduction internal fixation right radial shaft fracture, CPT 23960 Surgeon: Cirilo Cisneros MD Back Roll Lathe Operator: none Anesthesia: General Estimated Blood Loss: Implants: Surgical Indication: The patient is a 27 year old left-hand dominant male who dropped a piece of sheet metal on his right forearm and sustained an open distal radial shaft fracture. We discussed the risks and benefits of surgery and he elected to proceed with urgent debridement and open reduction internal fixation. A written consent was obtained via farm machinery engine mechanic. Description of Procedure: The patient was identified, marked, and the procedure was reconfirmed by myself prior to taking them to the operating room. IV antibiotics were given preoperatively. The patient was positioned appropriately supine and underwent adequate general anesthesia. A nonsterile tourniquet was used high on his right arm. The right arm was prepped and draped in a standard surgical fashion. Sterile saline was used to irrigate the dorsal forearm laceration. An esmarch was used to exsanguinate the arm, and a volar approach of floyd was performed on the right forearm. There was minimal tissue damage to the forearm. The interval between the FCR and Brachioradialis was utilized distally and the interval between the pronator teres and the brachioradialis proximally. The superficial branch of the radial nerve was identified and protected throughout the case. The radius was encountered and the minimally displaced fracture was located. An elevator was used to clear the radius off of any soft tissue attachments subperiosteally, taking care to elevate only what was needed to provide space for the plate on the radius. The fracture was spread with an elevator, cleaned with a currette, and the remaining 6L of fluid were used to irrigate the fracture site and surrounding tissue. A hoemann was used to reduce the fracture. A 7 hole plate was applied to the radius with two k-wires. A cortical screw was placed in the proximal shaft to reduce the plate to the bone. Another screw was placed proximally. Then the distal fragment was drilled eccentrically and the plate was applied in compression across the fracture. Good compression was obtained and the fracture was reduced. Fluoroscopy was used to verify the reduction. The rest of the plate holes were filled with non-locking screws. The tourniquet was let down and hemostasis obtained. The area was irrigated and closed with 0 vicryl, 2-0 vicryl and 3-0 monocryl suture. A prineo dressing was applied. The dorsal laceration was closed with 2-0 nylon sutures in a horizontal mattress fashion. He was placed in a well padded volar splint. Disposition: The patient was transferred to the bed and taken to the recovery room awake, alert, and in stable condition. Complications: None Post-operative Plan: IV antibiotics for 24 hours. nonweight bearing right upper extremity maintain splint x 1 week remove sutures in 1 week. CIRILO CISNEROS MD Aug 15, 2017 21:07
== END 2017-08-15 15:45 | disposition home or self-care (01) | DRG 512 ==
LOC: ER 13:21 → 4 SOUTHEST 16:19 → ER 16:20
PROVIDERS: ADMIT Internal Medicine; ATTEND Internal Medicine
PROC: 0PSH04Z Reposition Right Radius with Internal Fixation Device, Open Approach (ICD-10-PCS; principal; 2017-08-14 16:00)
DX: S52.301B Unspecified fracture of shaft of right radius, initial encounter for open fracture type I or II (principal); D72.829 Elevated white blood cell count, unspecified; I10 Essential (primary) hypertension; Z82.49 Family history of ischemic heart disease and other diseases of the circulatory system; S52.611B Displaced fracture of right ulna styloid process, initial encounter for open fracture type I or II; Y93.89 Activity, other specified; W20.8XXA Other cause of strike by thrown, projected or falling object, initial encounter; Y92.89 Other specified places as the place of occurrence of the external cause; Y99.8 Other external cause status
CPT/HCPCS: 36415; 73110; 76000; 80048; 80053; 82306; 85007; 85025; A4215; C1713; J0690; J1100; J2250; J2405; J2704; J3010; J3490; J7120; J2001